=== PATIENT | female | born 1990 | race Caucasian/White ===

== ENCOUNTER 2019-04-11 11:30 | Emergency (ER) | payer BC ==
[2019-04-11 11:41] VITALS: BP 125/89
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
== END 2019-04-11 12:17 | disposition home or self-care (01) ==
LOC: UCCORT 11:30
DX: J03.90 Acute tonsillitis, unspecified (principal); R09.82 Postnasal drip; G43.909 Migraine, unspecified, not intractable, without status migrainosus
CPT/HCPCS: 87651; 99202; G0463

== ENCOUNTER 2019-05-31 11:22 | Emergency (ER) | payer BC ==
[2019-05-31 11:58] VITALS: BP 120/83
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
== END 2019-05-31 13:14 | disposition home or self-care (01) ==
LOC: UCCORT 11:22
DX: S93.401A Sprain of unspecified ligament of right ankle, initial encounter (principal); X50.0XXA Overexertion from strenuous movement or load, initial encounter; Y93.01 Activity, walking, marching and hiking; Y92.9 Unspecified place or not applicable
CPT/HCPCS: 99212; G0463

== ENCOUNTER 2019-07-05 09:06 | Day surgery (SDC) | payer BC ==
[~2019-07-05 09:06] MED LIST: Buffered Lidocaine 1% SYRIN* 1 ML/SYRINGE INTRADERM ONE; Dexamethasone TAB* 4 MG PO ONE; DiMENhydriNATE IV* 50 MG/ML VIAL IV PUSH PRN; Famotidine IV* 10 MG/ML 2 ML (20 mg) IV ONE; HYDROmorphone INJ1* 1 MG/ML SYRINGE IV PRN; Lactated Ringers 1000 ML Bag* 1,000 ML IV SCH; Naloxone* 0.4 MG/ML 1 ML VIAL IV PRN; Ondansetron ODT TAB* 4 MG PO ONE; PROCHLORPERAZINE INJ 5 MG/ML 2 ML VIAL IV PRN; Scopolamine 1.5 mg* PATCH TRANSDERM PRN; oxyCODONE/Acetamin 5/325 MG* TAB PO PRN
[2019-07-05] MEDS ORDERED: Dexamethasone TAB* 4 MG ONE (09:31)
[2019-07-05] MEDS ORDERED: Buffered Lidocaine 1% SYRIN* 1 ML/SYRINGE INTRADERM ONE (09:32)
[2019-07-05] MEDS ORDERED: Famotidine IV* 10 MG/ML 2 ML (20 mg) ONE (09:32)
[2019-07-05] MEDS ORDERED: Ondansetron ODT TAB* 4 MG ONE (09:33)
[2019-07-05] MEDS ORDERED: fentaNYL* 50 MCG/ML 2 ML VIAL (100 MCG VIAL) ONE ×2 (10:12→12:19)
[2019-07-05] MEDS ORDERED: Midazolam* 1 MG/ML 5 ML VIAL (5 MG) ONE (10:12)
[2019-07-05] MEDS ORDERED: Rocuronium* 10 MG/ML VIAL ONE (10:12)
[2019-07-05] MEDS ORDERED: KETAMINE HCL* 50 MG/ML 10 ML VIAL ONE (10:12)
[2019-07-05] MEDS ORDERED: Propofol* 10 MG/ML 20 ML BTL ONE (11:16)
[2019-07-05] MEDS ORDERED: PROCHLORPERAZINE INJ 5 MG/ML 2 ML VIAL ONE ×2 (11:16→13:44)
[2019-07-05] MEDS ORDERED: Lidocaine 2% PF * 5 ML VIAL ONE (11:16)
[2019-07-05] MEDS ORDERED: Sugammadex * 500 MG/5 ML VIAL IV PUSH ONE (11:16)
[2019-07-05] MEDS: fentaNYL* 50 MCG/ML 2 ML VIAL (100 MCG VIAL) IV PRN ×2 (12:20→12:48)
[2019-07-05] MEDS ORDERED: Scopolamine 1.5 mg* PATCH ONE (13:44)
[2019-07-05 14:23] VITALS: BP 123/90
--- NOTE | 2019-07-05 15:54 | OP ---
DATE OF OPERATION: 07/05/19 - SDS DATE OF : 90 SURGEON: Syd Key MD. PRE-OP DIAGNOSIS: Chronic tonsillitis. POST-OP DIAGNOSIS: Chronic tonsillitis. OPERATIVE PROCEDURE: Tonsillectomy. BRIEF HISTORY: This 28-year-old with chronic tonsillitis elected for surgical management. DESCRIPTION OF PROCEDURE: The patient was taken to the operating room. General anesthetic was given. The patient was intubated. Tongue, mandible, and soft palate were retracted. Coblator was used to remove the tonsils. Once hemostasis was obtained, the patient was awakened, extubated, and sent to the recovery room in stable condition. COUNTS: Instrument and sponge counts correct. BLOOD LOSS: Minimal. [id number]/[id number] #: [id number] MTDD
[2019-07-08] MEDS ORDERED: Scopolamine PATCH Remove* 1 NOTE MISC PATCH OFF ONE (05:55)
== END 2019-07-05 14:22 | disposition home or self-care (01) ==
LOC: OR 09:06
PROVIDERS: ATTEND Otolaryngology
DX: J35.01 Chronic tonsillitis (principal)
CPT/HCPCS: 81025; A9270-GY; J0780; J2250; J2704; J3010; J8540